=== PATIENT | female | born 1970 | race Two or more races ===

== ENCOUNTER 2024-07-06 14:00 | Outpatient (RCR) | payer MEDICAID, SELFPAY ==
--- NOTE | 2024-06-28 13:17 | PTNOTE_ITS ---
PT OP Initial Eval Patient Information Outpatient Physical Therapy Treatment Date: 06/28/24 Visit Reasons: pain in shoulder Medical Diagnosis: M25.519 Treatment Dx #1: L shoulder pain Treatment Dx #2: Dec L shoulder ROM Start of Care: 06/28/24 Date of Onset: 04/01/24 Smoking Status Smoking Status: Never smoker Initial Assessment Subjective: Pt is 53 yr old barbadian speaking female s/p L RCR about 3 months ago reports pain and tightness that limits L shoulder ROM. ADL's such as hair care, dressing and reaching are limited by ROM. PMH: hysterectomy, x4 Pt goal: improved ROM ro reach up with less pain Objective: L shoulder AROM: FF: 55 deg Abd: 70 deg ER: 45 deg IR: L glute Assessment: Pt presentation consistent with adhesive capsulitis of?L ? shoulder. ROM is very limited with pain that limits to under 80 deg into all planes but especially ER and IR.? Pt may benefit from ? skilled therapy and has fair rehab potential to meet goals. Eval followed by [facility] with printout. Short Term and Skilled Nursing Goals 1. Ind with [facility] ? 2. Improved AROM of L shoulder to at least 135 deg FF, 125 deg abduction and 90 deg ? ER ? 3. Improved HBB ROM to L3 ? 4. Pt will reach OH x10 with <=4/10 pain Treatment Plan 1. Manual therapy ? 2. Therex ? 3. Modalities as indicated, moist heat pack, ice, electrical stimulation, Frequency and Duration: 2x a week for 18 visits plus the eval Certification Dates: 06/28/24 to 09/27/24 Procedure Charges OP PT Eval Mod Complex 30 minutes: Yes
--- NOTE | 2024-07-06 18:31 | PT.ODAYNRPT ---
PT Outpatient Daily Note OP Daily Note Outpatient Physical Therapy Treatment Date: 07/06/24 Visit Reasons: pain in shoulder Subjective: Same as time of eval Objective: See F/S for therex Assessment: Pain into abduction with therex Plan: Continue per POC Length of Time (minutes) of Treatment: 30 Minutes Procedure Charges Therapeutic Exercise 30 minutes: Yes
== END 2024-07-09 23:59 | disposition home or self-care (01) ==
LOC: CPTX 14:00
PROVIDERS: PCP Specialist; Referring Provider Specialist; Visit Provider Specialist
DX: M25.512 Pain in left shoulder (principal); M62.412 Contracture of muscle, left shoulder; Z98.890 Other specified postprocedural states
CPT/HCPCS: 97110; 97162

== ENCOUNTER 2024-08-08 14:00 | Outpatient (RCR) | payer MEDICAID, SELFPAY ==
--- NOTE | 2024-07-13 14:12 | PT.ODAYNRPT ---
PT Outpatient Daily Note OP Daily Note Outpatient Physical Therapy Treatment Date: 07/13/24 Visit Reasons: SHOULDER PAIN Subjective: Pt reports shoulder is really painful today and feels lot of tension in shoulders and neck. Pt shared that the only thing she can think of that she did different was iron clothes than she ususally does. Objective: Please see flow sheet for ther ex list. Assessment: Pt demonstrates poor intervention tolerance due to pain response. Plan: Continue with POC. Length of Time (minutes) of Treatment: 30 Minutes Procedure Charges Therapeutic Exercise 30 minutes: Yes
--- NOTE | 2024-07-20 14:04 | PT.ODAYNRPT ---
PT Outpatient Daily Note OP Daily Note Outpatient Physical Therapy Treatment Date: 07/20/24 Visit Reasons: SHOULDER PAIN Subjective: Pt reports shoulder continues to be painful and sore. Objective: Please see flow sheet for ther ex list. Assessment: Pt demonstrates poor activity tolerance due to pain response. Plan: Continue with POC. Length of Time (minutes) of Treatment: 30 Minutes Procedure Charges Therapeutic Exercise 30 minutes: Yes
--- NOTE | 2024-07-27 16:17 | PT.ODAYNRPT ---
PT Outpatient Daily Note OP Daily Note Outpatient Physical Therapy Treatment Date: 07/27/24 Visit Reasons: SHOULDER PAIN Subjective: Pt reports shoulder is sore and swollen again. Objective: Please see flow sheet for ther ex list. Assessment: Poor progress due to pt pain respone. Plan: Continue with POC. Length of Time (minutes) of Treatment: 30 Minutes Procedure Charges Therapeutic Exercise 30 minutes: Yes
--- NOTE | 2024-08-08 18:08 | PT.ODAYNRPT ---
PT Outpatient Daily Note OP Daily Note Outpatient Physical Therapy Treatment Date: 08/08/24 Visit Reasons: SHOULDER PAIN Subjective: Improved ROM recently Objective: See F/S for therex Assessment: Abduction AROM limited to about 70 deg, FF about 90 deg consistent with adhesive capsulitis Plan: Improve L shoulder ROM Length of Time (minutes) of Treatment: 30 Minutes Procedure Charges Therapeutic Exercise 30 minutes: Yes
== END 2024-08-08 23:59 | disposition home or self-care (01) ==
LOC: CPTX 14:00
PROVIDERS: PCP Specialist; Referring Provider Specialist; Visit Provider Specialist
DX: M25.512 Pain in left shoulder (principal); M62.412 Contracture of muscle, left shoulder; Z98.890 Other specified postprocedural states
CPT/HCPCS: 97110

== ENCOUNTER 2024-08-24 14:30 | Outpatient (RCR) | payer MEDICAID, SELFPAY ==
--- NOTE | 2024-08-11 15:03 | PT.ODAYNRPT ---
PT Outpatient Daily Note OP Daily Note Outpatient Physical Therapy Treatment Date: 08/11/24 Visit Reasons: shoulder pain Subjective: Pt reports shoulder is doing ok, still has pain in her shoulder. Objective: Please see flow sheet for ther ex list. Assessment: Pt requires verbal cues to perform thera band exercises with desired motion and to decrease speed to focus on task. Plan: Continue with poC. Length of Time (minutes) of Treatment: 30 Minutes Procedure Charges Therapeutic Exercise 30 minutes: Yes
--- NOTE | 2024-08-24 15:26 | PT.ODAYNRPT ---
PT Outpatient Daily Note OP Daily Note Outpatient Physical Therapy Treatment Date: 08/24/24 Visit Reasons: shoulder pain Subjective: Pt reports L shoulder continues to hurt but uses as best as she can to perform ADL and house chores. Objective: Please see flow sheet for ther ex list. Assessment: Interventions to focus on normalizing ROM and strength. Plan: Continue with poC. Length of Time (minutes) of Treatment: 30 Minutes Procedure Charges Therapeutic Exercise 30 minutes: Yes
== END 2024-09-08 23:59 | disposition home or self-care (01) ==
LOC: CPTX 14:30
PROVIDERS: PCP Specialist; Referring Provider Specialist; Visit Provider Specialist
DX: M25.512 Pain in left shoulder (principal); M62.412 Contracture of muscle, left shoulder; Z98.890 Other specified postprocedural states
CPT/HCPCS: 97110

== ENCOUNTER 2024-09-22 13:50 | Outpatient (RCR) | payer MEDICAID, SELFPAY ==
--- NOTE | 2024-09-22 16:01 | PT.ODAYNRPT ---
PT Outpatient Daily Note OP Daily Note Outpatient Physical Therapy Treatment Date: 09/22/24 Visit Reasons: shoulder pain Subjective: Improved ROM recently Objective: See F/S for therex Assessment: Abduction AROM has improved to about 130 deg, FF about 120 deg Plan: Improve L shoulder ROM Length of Time (minutes) of Treatment: 30 Minutes Procedure Charges Therapeutic Exercise 30 minutes: Yes
== END 2024-10-09 23:59 | disposition home or self-care (01) ==
LOC: CPTX 13:50
PROVIDERS: PCP Specialist; Referring Provider Specialist; Visit Provider Specialist
DX: M54.12 Radiculopathy, cervical region (principal)
CPT/HCPCS: 97110